=== PATIENT | male | born 1965 | race Caucasian/White ===

== ENCOUNTER 2024-05-24 16:01 | Emergency (ER) | payer OTHER ==
[~2024-05-24] VITALS: Ht 175.3 cm; Wt 99.8 kg
[2024-05-24 16:05] VITALS: TEMP 36.7; O2SAT 94
[2024-05-24] MEDS: DEXAMETHASONE 4MG/ML 1ML VIAL IM NR (17:30)
[2024-05-24 17:40] VITALS: PULSE 110; RESP 22
[2024-05-24] MEDS: IPRATROPIUM BROMIDE (0.02%) 0.5MG/2.5ML NEB HHN NR (17:40)
[2024-05-24] MEDS: ALBUTEROL (0.083%) 2.5MG/3ML NEB HHN NR (17:40)
[2024-05-24 18:10] LABS: BASOPHILS % 0.7 % (0.0-2.0); EOSINOPHILS % 0.4 % (0.0-5.0); HEMATOCRIT. 49.1 % (42.0-52.0); HEMOGLOBIN. 16.2 g/dL (14.0-18.0); LYMPHOCYTES % 23.1 % (20.0-50.0); MEAN CORPUSCULAR HEMOGLOBIN 29.2 pg (28.0-32.0); MEAN CORPUSCULAR HGB CONC 32.9 g/dL (31.0-37.0); MEAN CORPUSCULAR VOLUME 88.9 fL (80.0-94.0); MEAN PLATELET VOLUME 9.2 fl (7.4-10.4); MONOCYTES % 8.7 % (2.0-8.0); NEUTROPHILS % 67.1 % (40.0-76.0); PLATELET 239 x1000/uL (130-400); RED BLOOD CELL COUNT 5.53 mill/uL (4.7-6.1); RED CELL DISTRIBUTION WIDTH 14.9 % (11.6-14.6); WHITE BLOOD COUNT 10.4 x1000/uL (4.5-11.0)
[2024-05-24] MEDS ORDERED: IPRA4AER INH (18:21)
[2024-05-24] MEDS ORDERED: ALBU90AE INH (18:21)
[2024-05-24] MEDS ORDERED: METH4TAB95 MT (18:22)
[2024-05-24 18:24] LABS: CHLORIDE 108 mEq/L (98-107); POTASSIUM 4.1 mEq/L (3.5-5.1); SODIUM 141 mEq/L (136-145)
[2024-05-24 18:26] LABS: CALCIUM 9.4 mg/dL (8.7-10.4); CARBON DIOXIDE 26 mEq/L (21-32)
[2024-05-24 18:30] LABS: CREATININE 0.9 mg/dL (0.6-1.3)
[2024-05-24 18:31] LABS: GLUCOSE 111 mg/dL (70-105); UREA NITROGEN BLOOD 8 mg/dL (9-23)
[2024-05-24 18:38] LABS: TROPONIN I HIGH SENSITIVITY < 4 ng/L (3.0-53)
[2024-05-24 19:02] VITALS: BP 120/88
[2024-05-24] MEDS: HYDROCODONE/ACETAMINOPHEN 10/325MG TABLET PO ONE (19:02)
[2024-05-24] MEDS: IPRATROPIUM/ALBUTEROL 0.5-3(2.5)MG/3ML NEB HHN ONE (20:21)
[2024-05-24 20:23] VITALS: PULSE 95; RESP 20; O2SAT 94
[2024-05-24] MEDS: ACETAMINOPHEN 1000MG/100ML 100 ML IV NR (21:46)
[2024-05-24] MEDS: GABAPENTIN 300MG CAPSULE PO ONE (21:47)
[2024-05-24] MEDS: IOHEXOL-350 100 ML BOTTLE ONE (22:24)
== END 2024-05-24 23:36 | disposition home or self-care (01) ==
LOC: ER 16:01
DX: J44.1 Chronic obstructive pulmonary disease with (acute) exacerbation (principal); Z86.73 Personal history of transient ischemic attack (TIA), and cerebral infarction without residual deficits; Z98.890 Other specified postprocedural states; Z79.899 Other long term (current) drug therapy; Z88.6 Allergy status to analgesic agent
CPT/HCPCS: 99285; 96365; 71275; 71045; 80048; 85025; 85379; 84484; 36415; 94640; 93005; 98960; 96372; Q9967; J1100; 94070; 94664; J0131